=== PATIENT | male | born 1995 | race Two or more races ===

== ENCOUNTER 2020-04-16 23:27 | Emergency (ER) | payer MEDICAID, OTHER ==
[~2020-04-16] VITALS: Ht 190.5 cm; Wt 111.4 kg
[~2020-04-16 23:27] MED LIST: NO HOME MEDS; PENI500T2 PO
--- NOTE | 2020-04-16 23:51 | NUR ---
Pt says he felt a "pop" in his lower left back while at the gym. Pt. says he was not lifting heavy weights at the time. Pt. says pn in back has continued as well as frequency and urgency of urination since event. Pt. feels discomfort in hypogastric area during urination. Previous hx of hernia.
[2020-04-17] MEDS ORDERED: HYDROcodone/acetaminophen 10/325mg tab PO ONE (00:20)
[2020-04-17] MEDS ORDERED: cyclobenzaprine 10mg tablet PO ONE (00:20)
[2020-04-17] MEDS ORDERED: ondansetron 4mg rapidly disintigrating tab PO ONE (00:35)
[2020-04-17] MEDS ORDERED: HYDR-4383 PO (00:45)
[2020-04-17] MEDS ORDERED: CYCL-1 PO (00:45)
[2020-04-17 00:58] VITALS: BP 141/76
== END 2020-04-17 00:59 | disposition home or self-care (01) ==
LOC: ER 23:27
DX: M54.5 Low back pain (principal); R06.02 Shortness of breath; R11.0 Nausea; Z79.2 Long term (current) use of antibiotics; Z79.899 Other long term (current) drug therapy
CPT/HCPCS: 72100; 99284